=== PATIENT | male | born 1980 | race Caucasian/White ===

== ENCOUNTER 2018-04-02 20:36 | Emergency (ER) | payer OTHER ==
[~2018-04-02] VITALS: Ht 188 cm; Wt 113.4 kg
[2018-04-02 20:43] VITALS: BP 136/91
[2018-04-02] MEDS ORDERED: ASPIRIN 325 MG TABLET PO ONE (21:15)
[2018-04-02] MEDS ORDERED: IV NORMAL SALINE 1,000ML 1,000 ML IV ONE (21:15)
--- NOTE | 2018-04-02 21:24 | PHYS DOC ---
Past History Past Medical History: No Pertinent History Past Surgical History: Other Smoking: Non-smoker Alcohol Use: None Drug Use: None Adult General Chief Complaint Chief Complaint: CHEST PAIN HPI HPI Patient is a 38-year-old otherwise healthy male presenting with chest pain. Patient notes chest pain has been intermittent throughout the day today and has been associated with that talking about a stressful situations at his job and at home. Patient describes the chest pain as sharp with a severity of 3 out of 10 lasting 1 minute and located over the left anterior chest with radiation to left shoulder. Patient denies any associated nausea, vomiting, shortness of air , diaphoresis, or pleuritic pain. Patient notes he traveled to [place] 1 week ago, patient denies any recent surgery, patient denies any leg swelling or pain , denies cough, denies fever or chills, denies family history of cardiac disease. Patient reports current headache. Denies trauma. Denies neck pain. Review of Systems Review of Systems Constitutional: Denies fever or chills [] Eyes: Denies change in visual acuity, redness, or eye pain [] HENT: Denies nasal congestion or sore throat [] Respiratory: Denies cough or shortness of breath [] Cardiovascular: Reports chest pain, denies palpitations [] GI: Denies abdominal pain, nausea, vomiting, bloody stools or diarrhea [] : Denies dysuria or hematuria [] Musculoskeletal: Denies back pain, notes left shoulder pain [] Integument: Denies rash or skin lesions [] Neurologic: Notes headache. Denies focal weakness or sensory changes [] Complete systems were reviewed and found to be within normal limits, except as documented in this note. Family History Family History No family history of cardiac disease Current Medications Current Medications Current Medications Medications (Trade) Dose Ordered Sig/Mallory Start Time Stop Time Status Last Admin Dose Admin Aspirin (Nicole Aspirin) 325 mg 1X ONCE 04/02/18 21:15 04/02/18 21:16 UNV Sodium Chloride 1,000 ml @ 1,000 mls/hr 1X ONCE 04/02/18 21:15 04/02/18 22:14 UNV Allergies Allergies Allergies Coded Allergies Type Severity Reaction Last Updated Verified No Known Drug Allergies 04/02/18 No Physical Exam Physical Exam Constitutional: Well developed, well nourished, no acute distress, non-toxic appearance. [] HENT: Normocephalic, atraumatic, oropharynx moist, no oral exudates, nose normal. [] Eyes: PERRL, EOMI, conjunctiva normal, no discharge. [] Neck: Normal range of motion, no tenderness, supple, no meningeal signs Cardiovascular:Heart rate regular rhythm, no murmur [] Lungs & Thorax: Bilateral breath sounds clear to auscultation [] Abdomen: Soft, no tenderness, nondistended. [] Skin: Warm, dry, no erythema, no rash. [] Back: No tenderness, no CVA tenderness. [] Extremities: Tenderness over the left scapula and left acromioclavicular joints , no cyanosis, no clubbing, ROM intact, no edema. [] Neurologic: Alert and oriented X 3, normal motor function, normal sensory function, no focal deficits noted, cerebellar function intact. Psychologic: Affect normal, judgement normal, mood normal. [] Current Patient Data Vital Signs Vital Signs Date Time Temp Pulse Resp B/P (MAP) Pulse Ox O2 Delivery O2 Flow Rate FiO2 04/02/18 20:43 98.0 94 18 94 Room Air EKG EKG [Rate 89, MD 128, QTc 440. No STEMI. Normal sinus rhythm, right axis deviation.] Radiology/Procedures Radiology/Procedures PROCEDURE: CHEST PA & LATERAL Chest, PA and Lateral: Technique: PA and lateral views of the chest were obtained. History: Chest pain. Comparison: None. Findings: The heart and pulmonary vasculature appear within normal limits. The lungs are clear. The pleural margins are clear. Impression: No acute chest process is seen. Course & Med Decision Making Course & Med Decision Making 38 y/o male presenting sharp chest pain. No clinical signs of DVT/PE. PERC negative. Low cardiac risk factors. HEART score low risk 1 point for moderately concerning HPI. EKG stable. Labs obtained and posted to chart. Troponin x 2 negative. CXR clear. Patient also reporting a headache. Patient neurologically intact. No meningeal signs. Improved after dose of ketorolac. Patient stable for discharge with outpatient follow-up with PCP. Discussed findings and plan with patient and family, who acknowledge understanding and agreement. [] Dragon Disclaimer Dragon Disclaimer This electronic medical record was generated, in whole or in part, using a voice recognition dictation system. Departure Departure: Impression: Primary Impression: Chest pain Additional Impression: Headache Disposition: HOME, SELF-CARE Condition: STABLE Referrals: PCP,NO (PCP) Patient Instructions: Chest Pain (Nonspecific), [id number], Headache, FAQs Problem Qualifiers Primary Impression: Chest pain Chest pain type: unspecified Qualified Codes: R07.9 - Chest pain, unspecified Additional Impression: Headache Headache type: unspecified Headache chronicity pattern: acute headache Intractability: not intractable Qualified Codes: R51 - Headache CORTNEY STEPHENSON DO Apr 02, 2018 21:24
[2018-04-02 21:34] LABS: BASO # 0.1 x10^3/uL (0.0-0.2); BASO % 1 % (0-3); EOS # 0.2 x10^3/uL (0.0-0.7); EOS % 3 % (0-3); HEMOGLOBIN 15.4 g/dL (13.0-17.5); LYMPH # 2.6 x10^3/uL (1.0-4.8); LYMPH % 36 % (24-48); MEAN CORPUSCULAR HEMOGLOBIN 31 pg (25-35); MEAN CORPUSCULAR HGB CONC 35 g/dL (31-37); MEAN CORPUSCULAR VOLUME 88 fL (79-100); MONO # 0.5 x10^3/uL (0.0-1.1); MONO % 7 % (0-9); NEUT # 3.7 x10^3uL (1.8-7.7); NEUT % 52 % (31-73); PLATELET COUNT 199 x10^3/uL (140-400); RED CELL DISTRIBUTION WIDTH 13.1 % (11.5-14.5); WHITE BLOOD COUNT 7.2 x10^3/uL (4.0-11.0)
--- NOTE | 2018-04-02 21:36 | RAD ---
Chest, PA and Lateral: Technique: PA and lateral views of the chest were obtained. History: Chest pain. Comparison: None. Findings: The heart and pulmonary vasculature appear within normal limits. The lungs are clear. The pleural margins are clear. Impression: No acute chest process is seen. Electronically signed by: Beto Nelson MD (04/02/2018 9:32 PM) [facility]
[2018-04-02 21:55] LABS: ALBUMIN 3.8 g/dL (3.4-5.0); ALBUMIN/GLOBULIN RATIO 1.4 (1.0-1.7); CALCIUM 8.4 mg/dL (8.5-10.1); CREATININE 1.2 mg/dL (0.7-1.3); GFR 67.4; MAGNESIUM 1.9 mg/dL (1.8-2.4); TOTAL BILIRUBIN 0.4 mg/dL (0.2-1.0); TOTAL PROTEIN 6.6 g/dL (6.4-8.2)
[2018-04-02 21:57] LABS: POTASSIUM 3.8 mmol/L (3.5-5.1)
[2018-04-02] MEDS ORDERED: KETOROLAC 15 MG/ML VIAL. IV ONE (22:30)
--- NOTE | 2018-04-02 23:27 | EKG ---
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
== END 2018-04-02 23:21 | disposition home or self-care (01) ==
LOC: ER 20:36
DX: R07.89 Other chest pain (principal); R51 Headache; M25.512 Pain in left shoulder
CPT/HCPCS: 36415; 71046; 80053; 82553; 83690; 83735; 83880; 84484; 85025; 93005; 96374; 99284; J1885; J7030

== ENCOUNTER 2021-07-18 22:44 | Emergency (ER) | payer OTHER ==
[~2021-07-18] VITALS: Ht 188 cm; Wt 115.7 kg
[2021-07-18 23:10] VITALS: BP_DIAS 86
--- NOTE | 2021-07-18 23:52 | PHYS DOC ---
Past History Past Medical History: No Pertinent History Past Surgical History: Other Smoking: Non-smoker Alcohol Use: None Drug Use: None Adult General Chief Complaint Chief Complaint: ABDOMINAL PAIN HPI HPI Patient is a 41-year-old male who presents with a chief complaint of right lower quadrant pain and nausea which started earlier this morning.. States that the pain is about 6 out of 10, dull and achy in nature with no radiation. Denies any recent traumas, travels, illnesses, fevers, chest pain, shortness of breath, known ill contacts. Denies any dysuria, hematuria, blood in the stool. States he has had some soft stool as well. Did not take any medications. Did not try: Primary care physician. Review of Systems Review of Systems Review of systems otherwise unremarkable except noted in HPI Allergies Allergies Allergies Coded Allergies Type Severity Reaction Last Updated Verified No Known Drug Allergies 04/02/18 No Physical Exam Physical Exam Constitutional: Well developed, well nourished, no acute distress, non-toxic appearance. [] HENT: Normocephalic, atraumatic, bilateral external ears normal, oropharynx moist, no oral exudates, nose normal. [] Eyes: conjunctiva normal, no discharge. [] Neck: Normal range of motion, no tenderness, supple, no stridor. [] Cardiovascular:Heart rate regular rhythm, no murmur [] Lungs & Thorax: No respiratory distress Abdomen: soft, no tenderness, no masses, no pulsatile masses. [] Skin: Warm, dry, no erythema, no rash. [] Back: no CVA tenderness. [] Extremities: No tenderness, no cyanosis, no clubbing, ROM intact, no edema. [] Neurologic: Alert and oriented X 3, normal motor function, normal sensory function, able to sit, stand and walk without issue no focal deficits noted. [] Psychologic: Affect normal, judgement normal, mood normal. [] Current Patient Data Vital Signs Vital Signs Date Time Temp Pulse Resp B/P (MAP) Pulse Ox O2 Delivery O2 Flow Rate FiO2 07/18/21 23:10 99.0 106 18 135/86 (102) 95 Room Air EKG EKG [] Radiology/Procedures Radiology/Procedures [] Heart Score C/O Chest Pain: No Risk Factors: Risk Factors: DM, Current or recent (<one month) smoker, HTN, HLP, family history of CAD, obesity. Risk Scores: Risk Factors: DM, Current or recent (<one month) smoker, HTN, HLP, family history of CAD, obesity. Course & Med Decision Making Course & Med Decision Making Patient is 41-year-old male who presents with right lower quadrant pain Vital signs nonconcerning. Physical exam noted above. Given medications for symptom control. Laboratory analysis not concerning. CT notable for ileitis in the right lower quadrant and some reactive lymph nodes. Also had a 3 mm pulmonary nodule in the right middle lobe that needs follow-up in 12 months. Discussed all findings with patient. Started on antibiotics given possible infectious etiology. Given nausea medications for home. Discussed diet and hydration over the next couple of days. Advised to follow-up with primary care on Wednesday to discuss ED visit and CT findings. Gave return precautions to the ED. Patient grateful, verbalized understanding and agreed with plan of discharge. [] Dragon Disclaimer Dragon Disclaimer This electronic medical record was generated, in whole or in part, using a voice recognition dictation system. Departure Departure: Impression: Primary Impression: Enteritis Disposition: HOME / SELF CARE / HOMELESS Condition: STABLE Referrals: NON,STAFF (PCP) LISA SANTANA MD Patient Instructions: Colitis Additional Instructions: Thank you for coming into the emergency department tonight and allowing us to take care of you. Please read the attached information carefully go over things we discussed. As we discussed, you have some swelling in your bowels that could be due to to an infection or some other source of inflammation. We are st arted on antibiotics and nausea medicine in the ED. Please take your medicine as prescribed. Please be sure to stay well-hydrated. Over the next couple of days eat a light clear diet as we discussed with things such as chicken broth, and plenty of fluids such as Gatorade/Powerade. As we discussed you also have a three 8 mm nodule in your right middle lobe of the lung that needs reimaging in approximately 12 months. Please be sure to discuss all these findings with your primary care physician Wednesday morning and set up a follow-up as soon as you can. Please come back with new or concerning symptoms as discussed. Scripts Ondansetron (ONDANSETRON ODT) 4 Mg Tab.rapdis 1 TAB PO PRN Q6-8HRS for nausea, #16 TAB Prov: OSEAS ARGUELLO MD 07/19/21 Amoxicillin (AMOXICILLIN) 875 Mg Tablet 1 TAB PO BID for enteritis, #13 TAB Prov: OSEAS ARGUELLO MD 07/19/21 OSEAS ARGUELLO MD Jul 18, 2021 23:52
[2021-07-19 00:44] LABS: CALCIUM 8.5 mg/dL (8.5-10.1); GFR 81.9; POTASSIUM 3.5 mmol/L (3.5-5.1)
--- NOTE | 2021-07-19 00:52 | RAD ---
CT abdomen and pelvis without contrast PQRS statement: CT scans at this facility use dose reduction including either automated exposure cont rol, iterative reconstructions, and /or weight based radiation dosing via mA and kV modification when appropriate to reduce radiation dose to as low as reasonably achievable. HISTORY: Right lower quadrant abdominal pain. FINDINGS: 3 mm nodule right middle lobe image 1. Liver, gallbladder, spleen, adrenal glands, kidneys and pancreas are unremarkable. No urinary calculi or hydronephrosis. Edematous wall thickening of the small bowel of the lower abdomen and right lower quadrant consistent with ileitis. Appendix is socrates l. No bowel obstruction. Large bowel is unremarkable. Groundglass density edema and increase in numbe r subcentimeter small bowel mesenteric lymph nodes likely reactive from ileitis or mesenteric adeniti s. Pelvis findings: No bladder calculi. Small volume of dependent pelvic fluid. Bladder, prostate, rectu m and bones are normal. IMPRESSION: 1. Ileitis at the lower abdomen and right lower quadrant leading up to the ileocecal junction. This c ould be infectious ileitis or Crohn's disease. No bowel obstruction evident. 2. The appendix is normal. 3. No urinary calculi. 4. Groundglass edema and subcentimeter lymph nodes in the small bowel mesentery likely reactive swain es from ileitis. Mesenteric adenitis is a secondary consideration. 5. 3 mm solid pulmonary nodule at the right middle lobe. Per Fleischner guidelines if the patient has risk factors for malignancy optional CT chest imaging follow-up in 12 months should be considered ot herwise no follow-up is necessary. Electronically signed by: Shaun Granado MD (07/19/2021 12:49 AM) [facility]
[2021-07-19 00:53] LABS: BASO # 0.1 x10^3/uL (0.0-0.2); BASO % 1 % (0-3); EOS # 0.1 x10^3/uL (0.0-0.7); EOS % 1 % (0-3); HEMATOCRIT 43.3 % (39.0-53.0); HEMOGLOBIN 14.8 g/dL (13.0-17.5); LYMPH # 0.9 x10^3/uL (1.0-4.8); LYMPH % 14 % (24-48); MEAN CORPUSCULAR HEMOGLOBIN 30 pg (25-35); MEAN CORPUSCULAR HGB CONC 34 g/dL (31-37); MEAN CORPUSCULAR VOLUME 89 fL (79-100); MONO # 0.4 x10^3/uL (0.0-1.1); MONO % 6 % (0-9); NEUT % 77 % (31-73); PLATELET COUNT 159 x10^3/uL (140-400); RED BLOOD COUNT 4.86 x10^6/uL (4.30-5.70); RED CELL DISTRIBUTION WIDTH 13.1 % (11.5-14.5); WHITE BLOOD COUNT 6.4 x10^3/uL (4.0-11.0)
[2021-07-19] MEDS ORDERED: AMOX875T PO (01:05)
[2021-07-19] MEDS ORDERED: ONDA4TAB12 PO (01:05)
[2021-07-19] MEDS ORDERED: ONDANSETRON ODT 4 MG TAB.RAPDIS PO ONE (01:15)
[2021-07-19] MEDS ORDERED: IBUPROFEN 600 MG TABLET. PO ONE (01:15)
[2021-07-19] MEDS ORDERED: AMOXICILLIN/K CLAV 875/125MG TABLET. PO ONE (01:15)
[2021-07-19] MEDS ORDERED: ACETAMINOPHEN 500 MG TABLET PO ONE (01:15)
[2021-07-19 01:17] VITALS: BP_SYST 142
== END 2021-07-19 01:24 | disposition home or self-care (01) ==
LOC: ER 22:44
DX: K52.9 Noninfective gastroenteritis and colitis, unspecified (principal)
CPT/HCPCS: 36415; 74176; 80048; 85025; 99284; Q0162